=== PATIENT | female | born 1965 | race African-American/Black ===

== ENCOUNTER 2016-09-14 14:16 | Emergency (ER) | payer MEDICARE, MEDICAID ==
[2016-09-14] MEDS ORDERED: diphenhydrAMINE HCl 50 MG/ML 1 ML VIAL ONE ×2 (15:01→15:54)
[2016-09-14] MEDS ORDERED: Promethazine HCl 25 MG/ML VIAL ONE (15:01)
[2016-09-14] MEDS ORDERED: Acetaminophen 500 MG TAB ONE (15:01)
[2016-09-14] MEDS ORDERED: Ketorolac Tromethamine 30 MG/ML VIAL ONE (15:54)
[2016-09-14] MEDS ORDERED: methylPREDNISolone Sod Succ/PF 125 MG/2 ML VIAL ONE (15:54)
[2016-09-14] MEDS ORDERED: Sodium Chloride 0.9% 0 ML ONE (16:33)
[2016-09-14] MEDS ORDERED: Magnesium Sulfate 2 GM/100 ML BAG ONE (16:33)
--- NOTE | 2016-09-14 19:33 | ERRECORD ---
[facility] EMERGENCY RECORD HPI HEADACHE (14:44 MBRI) CHIEF COMPLAINT: Patient presents for evaluation of headache, Patient presents for evaluation of migraine headache, Pt with hx of migraine type headaches. HISTORIAN: History provided by patient, History provided by patient's family. LOCATION: Symptoms are generalized. QUALITY: Pain is dull in nature, described as aching, described as throbbing. SEVERITY: Maximum severity of symptoms severe, Currently symptoms are moderate. TIME COURSE: Gradual onset of symptoms, 3 days ago., There has been no change in the patient's symptoms over time. ASSOCIATED WITH FEMALE: No associated aura, No associated chills, No associated fever, No associated focal weakness, No posterior circulation symptoms present, No associated neck pain, No associated syncope, No associated trauma, No associated tingling, No associated numbness, No associated upper respiratory infection. EXACERBATED BY: Patient's condition exacerbated by nothing. RELIEVED BY: Patient's condition relieved by nothing, Patient's condition relieved by Pt tried her nml medications but this did not improve the symptoms. RISK FACTORS: No subarachnoid hemorrhage risk factors. ROS (14:44 MBRI) CONSTITUTIONAL: Negative constitutional review of systems, Historian denies chills, denies fever. EYES: Negative eye review of systems. ENT: Historian denies rhinorrhea, denies sore throat. CARDIOVASCULAR: Historian denies chest pain, denies dyspnea on exertion. RESPIRATORY: Historian denies cough, denies shortness of breath. GI: Negative gastrointestinal review of systems, Historian denies abdominal pain, denies diarrhea, denies nausea, denies vomiting. GENITOURINARY FEMALE: Historian denies dysuria, denies frequency, denies hematuria, denies urine output changes. MUSCULOSKELETAL: Historian denies injury, Denies any musculoskeletal pain. SKIN: Negative skin review of systems, Historian denies skin changes. NEUROLOGIC: Historian denies dizziness, denies focal weakness, reports headache, denies paresthesias, denies seizures, denies sensory changes. HEMO/LYMPHATIC: Historian denies abnormal blood clotting, denies easy bruising. PAST MEDICAL HISTORY (14:27 JSMI) MEDICAL HISTORY: Past medical history includes history of hypertension, which has been treated, Past medical history includes neurological disease, migraine headaches, NEUROPATHY IN LEGS. FEMALE SURGICAL HISTORY: Surgical history of &a-1R&a+25V*p+0X*l0246R*c202B*c15G*c2P*p-0X&a-25V&a+1R Name: Muna Grossman : 1965 F51 MedRec: [id number] AcctNum: [id number] Prepared: WedSep 15, 2016 09:28 by Interface Page 1 of 4 pMD [facility] EMERGENCY RECORD section, Date of surgery X2, Surgical history of gastric bypass, Surgical history of hysterectomy (PARTIAL). PSYCHIATRIC HISTORY: Psychiatric history includes, bipolar disorder. SOCIAL HISTORY: Patient drinks socially, rarely, Patient denies drug use, Patient has no smoking history. KNOWN ALLERGIES No Known Allergies (Unconfirmed) No Known Drug Allergies CURRENT MEDICATIONS Zofran ODT: TABLET,DISINTEGRATING : Strength - 8 mg : ORAL Patient Dose: 1 tab(s) Sublingual every 8 hours PRN. (14:23 JSMI) Abilify: TABLET : Strength - 2 mg : ORAL Patient Dose: 10 mg Oral once a day. (14:23 JSMI) amLODIPine: TABLET : Strength - 5 mg : ORAL Patient Dose: 5 mg Oral once a day. (14:23 JSMI) Cymbalta: CAPSULE,DELAYED RELEASE (ENTERIC COATED) : Strength - 60 mg : ORAL Patient Dose: 60 mg Oral once a day. (14:23 JSMI) Lyrica: CAPSULE : Strength - 25 mg : ORAL Patient Dose: 75 mg Oral 2 times a day. (14:23 JSMI) RisperDAL: TABLET : Strength - 0.25 mg : ORAL Patient Dose: unk. (14:24 JSMI) VITAL SIGNS VITAL SIGNS: BP: 133/90, Pulse: 87, Resp: 16, Temp: 98.1 (Oral), Pain: 8, O2 sat: 97 on Room Air, Time: 09/14/2016 14:25. (14:25 JSMI) BP: 140/91, Pulse: 72, Resp: 16, Pain: 5, O2 sat: 98 on Room Air, Time: 09/14/2016 16:19. (16:19 JSMI) BP: 131/85, Pulse: 71, Resp: 16, Pain: 5, O2 sat: 97 on Room Air, Time: 09/14/2016 17:05. (17:05 KMOR) BP: 147/95, Pulse: 79, Resp: 14, O2 sat: 97 on RA, Time: 09/14/2016 17:20. (17:20 JSMI) BP: 159/95, Pulse: 74, Resp: 16, Pain: 5, O2 sat: 98 on Room Air, Time: 09/14/2016 18:29. (18:29 JSMI) BP: 155/79, Pulse: 75, Resp: 16, Temp: 97.7 (Oral), Pain: 5, O2 sat: 99 on Room Air, Time: 09/14/2016 19:15. (19:15 KMOR) PHYSICAL EXAM (14:44 MBRI) CONSTITUTIONAL: Vital Signs Reviewed, Nursing notes reviewed. HEAD: Head exam included findings of head atraumatic, normocephalic. &a-1R&a+25V*p+0X*w2104D*c202B*c15G*c2P*p-0X&a-25V&a+1R Name: Muna Grossman : 1965 F51 MedRec: [id number] AcctNum: [id number] Prepared: WedSep 15, 2016 09:28 by Interface Page 2 of 4 pMD [facility] EMERGENCY RECORD EYES: Eye exam included findings of eyelids normal to inspection, Pupils equally round and reactive to light, Extraocular muscles intact. ENT: Ear exam normal, external ear normal, tympanic membranes normal, Pharynx exam normal. NECK: Neck exam normal, no cervical adenopathy, no tenderness. RESPIRATORY CHEST: Respiratory exam included findings of no respiratory distress, Breath sounds clear, No wheezing, No rales, No rhonchi. CARDIOVASCULAR: Cardiovascular exam included findings of heart rate regular rate and rhythm, Heart sounds normal, Carotids normal. ABDOMEN FEMALE: Abdominal exam included findings of abdomen nontender, Bowel sounds normal, no peritoneal signs, no rigidity, no guarding, no rebound. BACK: Back exam included findings of normal inspection, no tenderness. UPPER EXTREMITY: Upper extremity exam included findings of inspection normal, Radial pulse normal, no cyanosis, no clubbing, no edema. LOWER EXTREMITY: Lower extremity exam included findings of inspection normal, femoral pulses normal, no cyanosis, no clubbing, no edema, no tenderness noted. NEURO: Neuro exam findings include patient oriented to person, place and time, Speech normal, Gait normal, Memory normal, Cranial nerves intact, Deep tendon reflexes normal, no focal motor deficits, no focal sensory deficits, no cerebellar deficits. SKIN: Skin exam included findings of skin warm, dry, and normal in color. MEDICATION ADMINISTRATION SUMMARY Drug Name: valproate sodium, Dose Ordered: 15 mg/kg mg, Route: IV Piggy Back, Status: Given, Time: 18:09 09/14/2016, Drug Name: magnesium sulfate injection, Dose Ordered: 2 g, Route: IV Piggy Back, Status: Given, Time: 16:45 09/14/2016, Drug Name: *sodium chloride 0.9 % intravenous, Dose Ordered: 250 mL/hr, Route: IV Fluid Infusion, Status: Given, Time: 16:19 09/14/2016, Drug Name: methylPREDNISolone sodium succ injection, Dose Ordered: 125 mg, Route: IV Push, Status: Given, Time: 16:00 09/14/2016, Drug Name: diphenhydrAMINE injection, Dose Ordered: 25 mg, Route: IV Push, Status: Given, Time: 15:57 09/14/2016, Drug Name: ketorolac injection, Dose Ordered: 30 mg, Route: IV Push, Status: Given, Time: 15:55 09/14/2016, Drug Name: Phenergan injection, Dose Ordered: 12.5 mg, Route: IV Push, Status: Given, Time: 15:08 09/14/2016, Drug Name: diphenhydrAMINE injection, Dose Ordered: 25 mg, Route: IV Push, Status: Given, Time: 15:06 09/14/2016, Drug Name: Tylenol Extra Strength, Dose Ordered: 1000 mg, Route: Oral, Status: Given, Time: 15:05 09/14/2016, Drug Name: sodium chloride 0.9 % intravenous, Dose Ordered: 1 L, &a-1R&a+25V*p+0X*[id number]*c202B*c15G*c2P*p-0X&a-25V&a+1R Name: Chauncey Muna L : 1965 F51 MedRec: [id number] AcctNum: [id number] Prepared: WedSep 15, 2016 09:28 by Interface Page 3 of 4 pMD [facility] EMERGENCY RECORD Route: IV Fluid Infusion, Status: Given, Time: 14:55 09/14/2016, *Additional information available in notes, Detailed record available in Medication Service section. PROBLEM LIST No recorded problems DIAGNOSIS (18:28 MBRI) FINAL: PRIMARY: Migraine (unspecified). PRESCRIPTION No recorded prescriptions DISPOSITION PATIENT: Disposition Type: Discharge, Disposition: *Discharge Home, Condition: Fair. (19:18 MBRI) Patient left the department. (19:25 JSMI) Rodrigez: SHANNON=KATHARINA Wang, Melissa KMOR=KATHARINA Cardoza, Johnna MBRI=DO Hendrickson Matthew &a-1R&a+25V*p+0X*a6919P*c202B*c15G*c2P*p-0X&a-25V&a+1R Name: Muna Grossman : 1965 F51 MedRec: [id number] AcctNum: [id number] Prepared: [place] Sep 15, 2016 09:28 by Interface Page 4 of 4 pMD MTDD
--- NOTE | 2016-09-14 19:40 | PICIS ---
[facility] EMERGENCY RECORD TRIAGE (WedSep 14, 2016 14:22 JSMI) PATIENT: NAME: Muna Grossman, AGE: 51, GENDER: female, : Wed1965, TIME OF GREET: WedSep 14, 2016 14:17, PREFERRED LANGUAGE: Thai, ETHNICITY: Not or , ECODE BILLING MAP: [facility], SSN: [id number], Zip Code: [address], KG WEIGHT: 122.47, PHONE: , , , PERSON ID: [id number], PAYMENT: [place] [employer], PCP: DO ALONZO JOHN SCOTT. (WedSep 14, 2016 14:22 JSMI) COMPLAINT: migraine. (WedSep 14, 2016 14:22 JSMI) ADMISSION: URGENCY: 3 Urgent, ADMISSION SOURCE: Home, TRANSPORT: CAR, BED: TRIAGE. (WedSep 14, 2016 14:22 JSMI) ASSESSMENT: Assessment: PT PRESENTS AWAKE ALERT AND ORIENTED. SKIN PINK WARM AND DRY., Symptoms began 09/11/2016. (14:27 JSMI) IMMUNIZATIONS: Flu vaccine not up to date. (14:27 JSMI) SIRS SCORING: Heart Rate 55-109 (0), respiratory rate 12-24 (0), Mental Status altered: no (0), Infection or Suspected Infection: No. (14:27 JSMI) PROVIDERS: TRIAGE NURSE: Melissa Wang RN. (WedSep 14, 2016 14:22 JSMI) VITAL SIGNS: BP 133/90, Pulse 87, Resp 16, Temp 98.1, (Oral), Pain 8, O2 Sat 97, on Room Air, Time 09/14/2016 14:25. (14:25 JSMI) PREVIOUS VISIT ALLERGIES: No Known Drug Allergies. (WedSep 14, 2016 14:22 JSMI) No Known Drug Allergies. (14:27 JSMI) KNOWN ALLERGIES No Known Allergies (Unconfirmed) No Known Drug Allergies CURRENT MEDICATIONS Zofran ODT: TABLET,DISINTEGRATING : Strength - 8 mg : ORAL Patient Dose: 1 tab(s) Sublingual every 8 hours PRN. (14:23 JSMI) Abilify: TABLET : Strength - 2 mg : ORAL Patient Dose: 10 mg Oral once a day. (14:23 JSMI) amLODIPine: TABLET : Strength - 5 mg : ORAL Patient Dose: 5 mg Oral once a day. (14:23 JSMI) Cymbalta: CAPSULE,DELAYED RELEASE (ENTERIC COATED) : Strength - 60 mg : ORAL Patient Dose: 60 mg Oral once a day. (14:23 JSMI) Lyrica: CAPSULE : Strength - 25 mg : ORAL Patient Dose: 75 mg Oral 2 times a day. (14:23 JSMI) RisperDAL: TABLET : Strength - 0.25 mg : ORAL Patient Dose: unk. (14:24 JSMI) &a-1R&a+25V*p+0X*f0082E*c202B*c15G*c2P*p-0X&a-25V&a+1R Name: Muna Grossman : 1965 F51 MedRec: [id number] AcctNum: [id number] Prepared: Charlotte Sep 15, 2016 09:28 by Interface Page 1 of 10 pMD [facility] EMERGENCY RECORD VITAL SIGNS VITAL SIGNS: BP: 133/90, Pulse: 87, Resp: 16, Temp: 98.1 (Oral), Pain: 8, O2 sat: 97 on Room Air, Time: 09/14/2016 14:25. (14:25 JSMI) BP: 140/91, Pulse: 72, Resp: 16, Pain: 5, O2 sat: 98 on Room Air, Time: 09/14/2016 16:19. (16:19 JSMI) BP: 131/85, Pulse: 71, Resp: 16, Pain: 5, O2 sat: 97 on Room Air, Time: 09/14/2016 17:05. (17:05 KMOR) BP: 147/95, Pulse: 79, Resp: 14, O2 sat: 97 on RA, Time: 09/14/2016 17:20. (17:20 JSMI) BP: 159/95, Pulse: 74, Resp: 16, Pain: 5, O2 sat: 98 on Room Air, Time: 09/14/2016 18:29. (18:29 JSMI) BP: 155/79, Pulse: 75, Resp: 16, Temp: 97.7 (Oral), Pain: 5, O2 sat: 99 on Room Air, Time: 09/14/2016 19:15. (19:15 KMOR) NURSING ASSESSMENT: NEURO (14:27 JSMI) GCS: (6) Obeying command:, (5) Orientated:, (4) Spontaneous eye opening., Result: 15. CONSTITUTIONAL: Complex assessment performed, Patient arrives ambulatory, Gait steady, History obtained from patient, Patient appears comfortable, Patient cooperative, Patient alert, Oriented to person, place and time, Skin warm, Skin dry, Skin normal in color, Mucous membranes pink, Mucous membranes moist, Patient is well-groomed, Patient complains of migraine. PAIN: throbbing pain, to the frontal region, to the posterior region, on a scale 0-10 patient rates pain as 8. NEURO: Pupils equally round and reactive to light, Left pupil 3 mm in size, Right pupil 3 mm in size. NURSING PROCEDURE: DISCHARGE NOTE (19:23 JSMI) DISCHARGE: Patient discharged to home, ambulating without assistance, family driving, accompanied by other family member, Summary of Care printed/ provided, Patient requested and was provided an electronic copy of Discharge Instructions, Transition record given to patient, Discharge instructions given to patient, Simple or moderate discharge teaching performed, Prescriptions given and instructions on side effects given, Medication reconciliation form given, Above person(s) verbalized understanding of discharge instructions and follow-up care, Patient treated and evaluated by physician. BELONGINGS: cellular phone. NURSING PROCEDURE: IV (19:18 JSMI) FOLLOW-UP SITE 1: IV discontinued, due to patient being discharged, catheter intact. NURSING PROCEDURE: NURSE NOTES NURSES NOTES: Notes: Patient texting on phone, reports still having a headache. (17:04 KMOR) &a-1R&a+25V*p+0X*e8713G*c202B*c15G*c2P*p-0X&a-25V&a+1R Name: Muna Grossman : 1965 F51 MedRec: [id number] AcctNum: [id number] Prepared: WedSep 15, 2016 09:28 by Interface Page 2 of 10 pMD [facility] EMERGENCY RECORD Notes: PTS FRIEND STATES PT WANTS TO LEAVE. (17:20 JSMI) Notes: Dr. Hendrickson spoke with about waiting for medication, patient agreed to wait. NAD at this time. (17:46 KMOR) Patient assisted to bathroom with steady gait. (17:30 JSMI) Shift change report given, to KATHARINA Loera, Provided opportunity to answer questions, Line reconciliation completed. (19:04 JSMI) VITAL SIGNS: BP: 147, / 95, Pulse: 79, Resp: 14, O2 sat: 97, on: RA. (17:20 JSMI) ORDER DETAILS Order Name: ERRT Oxygen Usage ER, Status: Active, Time: 14:36 09/14/2016, User: SAMANTHA, - Ordered for: DO Hendrickson Matthew, - Entered by: DO Hendrickson Matthew - [facility] Sep 14, 2016 14:36, - Quantity: 1, Order Name: SALINE LOCK, Status: Done, Time: 15:11 09/14/2016, User: SHANNON, - Ordered for: DO Hendrickson Matthew, - Entered by: DO Hendrickson Matthew - [facility] Sep 14, 2016 14:36, - Quantity: 1. MEDICATION ADMINISTRATION SUMMARY Drug Name: valproate sodium, Dose Ordered: 15 mg/kg mg, Route: IV Piggy Back, Status: Given, Time: 18:09 09/14/2016, Drug Name: magnesium sulfate injection, Dose Ordered: 2 g, Route: IV Piggy Back, Status: Given, Time: 16:45 09/14/2016, Drug Name: *sodium chloride 0.9 % intravenous, Dose Ordered: 250 mL/hr, Route: IV Fluid Infusion, Status: Given, Time: 16:19 09/14/2016, Drug Name: methylPREDNISolone sodium succ injection, Dose Ordered: 125 mg, Route: IV Push, Status: Given, Time: 16:00 09/14/2016, Drug Name: diphenhydrAMINE injection, Dose Ordered: 25 mg, Route: IV Push, Status: Given, Time: 15:57 09/14/2016, Drug Name: ketorolac injection, Dose Ordered: 30 mg, Route: IV Push, Status: Given, Time: 15:55 09/14/2016, Drug Name: Phenergan injection, Dose Ordered: 12.5 mg, Route: IV Push, Status: Given, Time: 15:08 09/14/2016, Drug Name: diphenhydrAMINE injection, Dose Ordered: 25 mg, Route: IV Push, Status: Given, Time: 15:06 09/14/2016, Drug Name: Tylenol Extra Strength, Dose Ordered: 1000 mg, Route: Oral, Status: Given, Time: 15:05 09/14/2016, Drug Name: sodium chloride 0.9 % intravenous, Dose Ordered: 1 L, Route: IV Fluid Infusion, Status: Given, Time: 14:55 09/14/2016, *Additional information available in notes, Detailed record available in Medication Service section. MEDICATION SERVICE diphenhydrAMINE injection: Order: diphenhydrAMINE injection (diphenhydramine HCl) - Dose: 25 mg : IV Push &a-1R&a+25V*p+0X*u7598I*c202B*c15G*c2P*p-0X&a-25V&a+1R Name: Muna Grossman : 1965 F51 MedRec: [id number] AcctNum: [id number] Prepared: WedSep 15, 2016 09:28 by Interface Page 3 of 10 pMD [facility] EMERGENCY RECORD Ordered by: Jonny Hendrickson DO Entered by: Jonny Hendrickson DO WedSep 14, 2016 14:36 , Acknowledged by: Melissa Wang RN WedSep 14, 2016 15:01 Documented as given by: Melissa Wang RN WedSep 14, 2016 15:06 Patient, Medication, Dose, Route and Time verified prior to administration. IV SITE #1 IVP, initial medication, Slowly, Catheter placement confirmed via flush prior to administration, IV site without signs or symptoms of infiltration during medication administration, No swelling during administration, No drainage during administration, IV flushed after administration, Correct patient, time, route, dose and medication confirmed prior to administration, Patient advised of actions and side-effects prior to administration, Allergies confirmed and medications reviewed prior to administration, Patient in position of comfort, Side rails up, Cart in lowest position. diphenhydrAMINE injection: Order: diphenhydrAMINE injection (diphenhydramine HCl) - Dose: 25 mg : IV Push Ordered by: Jonny Hendrickson DO Entered by: Jonny Hendrickson DO WedSep 14, 2016 15:38 , Acknowledged by: Melissa Wang RN WedSep 14, 2016 15:52 Documented as given by: Melissa Wang RN WedSep 14, 2016 15:57 Patient, Medication, Dose, Route and Time verified prior to administration. IV SITE #1 IVP, subsequent different medication, Slowly, Catheter placement confirmed via flush prior to administration, IV site without signs or symptoms of infiltration during medication administration, No swelling during administration, No drainage during administration, IV flushed after administration, Correct patient, time, route, dose and medication confirmed prior to administration, Patient advised of actions and side-effects prior to administration, Allergies confirmed and medications reviewed prior to administration, Patient in position of comfort, Side rails up, Cart in lowest position. ketorolac injection: Order: ketorolac injection (ketorolac tromethamine) - Dose: 30 mg : IV Push Ordered by: Jonny Hendrickson DO Entered by: Jonny Hendrickson DO WedSep 14, 2016 15:38 , Acknowledged by: Melissa Wang RN WedSep 14, 2016 15:52 Documented as given by: Melissa Wang RN WedSep 14, 2016 15:55 Patient, Medication, Dose, Route and Time verified prior to administration. IV SITE #1 IVP, subsequent different medication, Slowly, Catheter placement confirmed via flush prior to administration, IV site without signs or symptoms of infiltration during medication administration, No swelling during administration, No drainage during administration, IV flushed after administration, Correct patient, time, route, dose and medication confirmed prior to administration, Patient advised of actions and side-effects prior to administration, Allergies confirmed and medications reviewed prior to administration, Patient in position of comfort, Side rails up, Cart in lowest &a-1R&a+25V*p+0X*l4037P*c202B*c15G*c2P*p-0X&a-25V&a+1R Name: Muna Grossman Delbert : 1965 F51 MedRec: [id number] AcctNum: [id number] Prepared: WedSep 15, 2016 09:28 by Interface Page 4 of 10 pMD [facility] EMERGENCY RECORD position. magnesium sulfate injection: Order: magnesium sulfate injection (magnesium sulfate) - Dose: 2 g : IV Piggy Back Schedule: Now Ordered by: Jonny Hendrickson DO Entered by: Jonny Hendrickson DO WedSep 14, 2016 16:31 , Acknowledged by: Melissa Wang RN WedSep 14, 2016 16:32 Documented as given by: Melissa Wang RN WedSep 14, 2016 16:45 Patient, Medication, Dose, Route and Time verified prior to administration. IV SITE #1 IVPB or drip, subsequent infusion, Premixed, Catheter placement confirmed via flush prior to administration, IV site without signs or symptoms of infiltration during medication administration, No swelling during administration, No drainage during administration, IV flushed after administration, Correct patient, time, route, dose and medication confirmed prior to administration, Patient advised of actions and side-effects prior to administration, Allergies confirmed and medications reviewed prior to administration, Patient in position of comfort, Side rails up, Cart in lowest position. : Follow Up : Response assessment performed, No signs or symptoms of allergic reaction noted, _IV SITE #1:_, Medication infusion discontinued, on WedSep 14, 2016 17:04, 20 minutes, ., Total amount infused: 50ml. (17:04 KMOR) methylPREDNISolone sodium succ injection: Order: methylPREDNISolone sodium succ injection (methylprednisolone sod succ) - Dose: 125 mg : IV Push Ordered by: Jonny Hendrickson DO Entered by: Jonny Hendrickson DO WedSep 14, 2016 15:38 , Acknowledged by: Melissa Wang RN WedSep 14, 2016 15:52 Documented as given by: Melissa Wang RN WedSep 14, 2016 16:00 Patient, Medication, Dose, Route and Time verified prior to administration. IV SITE #1 IVP, subsequent different medication, Slowly, Catheter placement confirmed via flush prior to administration, IV site without signs or symptoms of infiltration during medication administration, No swelling during administration, No drainage during administration, IV flushed after administration, Correct patient, time, route, dose and medication confirmed prior to administration, Patient advised of actions and side-effects prior to administration, Allergies confirmed and medications reviewed prior to administration, Patient in position of comfort, Side rails up, Cart in lowest position. Phenergan injection: Order: Phenergan injection (promethazine HCl) - Dose: 12.5 mg : IV Push Schedule: Now Ordered by: Jonny Hendrickson DO Entered by: Jonny Hendrickson DO WedSep 14, 2016 14:37 , Acknowledged by: Melissa Wang RN WedSep 14, 2016 15:01 Documented as given by: Melissa Wang RN WedSep 14, 2016 15:08 &a-1R&a+25V*p+0X*p0778S*c202B*c15G*c2P*p-0X&a-25V&a+1R Name: Muna Grossman : 1965 F51 MedRec: [id number] AcctNum: [id number] Prepared: WedSep 15, 2016 09:28 by Interface Page 5 of 10 pMD [facility] EMERGENCY RECORD Patient, Medication, Dose, Route and Time verified prior to administration. IV SITE #1 IVPB or drip, initial infusion, IVPB mixed in: 100ml, Fluid: 0.9NS, via gravity tubing, Catheter placement confirmed via flush prior to administration, IV site without signs or symptoms of infiltration during medication administration, No swelling during administration, No drainage during administration, IV flushed after administration, Correct patient, time, route, dose and medication confirmed prior to administration, Patient advised of actions and side-effects prior to administration, Allergies confirmed and medications reviewed prior to administration, Patient in position of comfort, Side rails up, Cart in lowest position, Pt states she has someone to drive her home. : Follow Up : _IV SITE #1:_, Medication infusion discontinued, on WedSep 14, 2016 15:30, 25 minutes, . (15:30 [facility]) sodium chloride 0.9 % intravenous: Order: sodium chloride 0.9 % intravenous (0.9 % sodium chloride) - Dose: 1 L : IV Fluid Infusion Ordered by: Jonny Hendrickson DO Entered by: Jonny Hendrickson DO WedSep 14, 2016 14:36 Documented as given by: Melissa Wang RN WedSep 14, 2016 14:55 Patient, Medication, Dose, Route and Time verified prior to administration. IV SITE #1 IV fluids established for hydration, IV SITE #1 1st bag hung, amount 1 Liter hung, IV SITE #1 bolus of 1000 ml established, IV SITE #1 Rate of bolus, wide open, via gravity tubing, Catheter placement confirmed via flush prior to administration, IV site without signs or symptoms of infiltration during medication administration, No swelling during administration, No drainage during administration, IV flushed after administration, Correct patient, time, route, dose and medication confirmed prior to administration, Patient advised of actions and side-effects prior to administration, Allergies confirmed and medications reviewed prior to administration, Patient in position of comfort, Side rails up, Cart in lowest position. : Follow Up : _IV SITE #1:_, IV fluid infusion discontinued, on WedSep 14, 2016 16:00, Total fluid hydration time IV site 1 1 hour, 5 minutes, ., Total amount infused: 1000. (16:00 [facility]) sodium chloride 0.9 % intravenous: Order: sodium chloride 0.9 % intravenous (0.9 % sodium chloride) - Dose: 250 mL/hr : IV Fluid Infusion Schedule: Now Notes: x 1 L Ordered by: Jonny Hendrickson DO Entered by: Jonny Hendrickson DO WedSep 14, 2016 15:38 , Acknowledged by: Melissa Wang RN WedSep 14, 2016 15:52 Documented as given by: Melissa Wang RN WedSep 14, 2016 16:19 Patient, Medication, Dose, Route and Time verified prior to administration. IV SITE #1 IV fluids established for hydration, IV SITE #1 2nd bag &a-1R&a+25V*p+0X*g9046E*c202B*c15G*c2P*p-0X&a-25V&a+1R Name: Muna Grossman : 1965 F51 MedRec: [id number] AcctNum: [id number] Prepared: WedSep 15, 2016 09:28 by Interface Page 6 of 10 pMD [facility] EMERGENCY RECORD hung, amount 1 Liter hung, IV SITE #1 bolus of 1000 ml established, IV SITE #1 Rate of bolus, wide open, via gravity tubing, Catheter placement confirmed via flush prior to administration, IV site without signs or symptoms of infiltration during medication administration, No swelling during administration, No drainage during administration, IV flushed after administration, Correct patient, time, route, dose and medication confirmed prior to administration, Patient advised of actions and side-effects prior to administration, Allergies confirmed and medications reviewed prior to administration, Patient in position of comfort, Side rails up, Cart in lowest position. : Follow Up : _IV SITE #1:_, IV fluid infusion discontinued, on WedSep 14, 2016 17:30, Total fluid hydration time IV site 1 1 hour, 15 minutes, ., Total amount infused: 1000. (17:30 [facility]) Tylenol Extra Strength: Order: Tylenol Extra Strength (acetaminophen) - Dose: 1000 mg : Oral Ordered by: Jonny Hendrickson DO Entered by: Jonny Hendrickson DO WedSep 14, 2016 14:36 , Acknowledged by: Melissa Wang RN WedSep 14, 2016 15:01 Documented as given by: Melissa Wang RN WedSep 14, 2016 15:05 Patient, Medication, Dose, Route and Time verified prior to administration. Correct patient, time, route, dose and medication confirmed prior to administration, Patient advised of actions and side-effects prior to administration, Allergies confirmed and medications reviewed prior to administration, Patient in position of comfort, Side rails up, Cart in lowest position, Family at bedside. valproate sodium: Order: valproate sodium - Dose: 15 mg/kg mg : IV Piggy Back Schedule: Now Ordered by: Jonny Hendrickson DO Entered by: Jonny Hendrickson DO WedSep 14, 2016 17:21 , Acknowledged by: Melissa Wang RN WedSep 14, 2016 17:23 Documented as given by: Melissa Wang RN WedSep 14, 2016 18:09 Patient, Medication, Dose, Route and Time verified prior to administration. IV SITE #1 IVPB or drip, subsequent infusion, IVPB mixed in: 100ml, Fluid: 0.9NS, via primary tubing, via pump tubing, Catheter placement confirmed via flush prior to administration, IV site without signs or symptoms of infiltration during medication administration, No swelling during administration, No drainage during administration, IV flushed after administration, Correct patient, time, route, dose and medication confirmed prior to administration, Patient advised of actions and side-effects prior to administration, Allergies confirmed and medications reviewed prior to administration, Patient in position of comfort, Side rails up, Cart in lowest position. : Follow Up : Response assessment performed, No signs or symptoms of allergic reaction noted, _IV SITE #1:_, Medication infusion discontinued, on WedSep 14, 2016 19:15, Total infusion time IV site 1 1 hour, 10 minutes, ., Total amount infused: &a-1R&a+25V*p+0X*q9992P*c202B*c15G*c2P*p-0X&a-25V&a+1R Name: Muna Grossman : 1965 F51 MedRec: [id number] AcctNum: [id number] Prepared: WedSep 15, 2016 09:28 by Interface Page 7 of 10 pMD [facility] EMERGENCY RECORD 100ml. (19:14 KMOR) HPI HEADACHE (14:44 MBRI) CHIEF COMPLAINT: Patient presents for evaluation of headache, Patient presents for evaluation of migraine headache, Pt with hx of migraine type headaches. HISTORIAN: History provided by patient, History provided by patient's family. LOCATION: Symptoms are generalized. QUALITY: Pain is dull in nature, described as aching, described as throbbing. SEVERITY: Maximum severity of symptoms severe, Currently symptoms are moderate. TIME COURSE: Gradual onset of symptoms, 3 days ago., There has been no change in the patient's symptoms over time. ASSOCIATED WITH FEMALE: No associated aura, No associated chills, No associated fever, No associated focal weakness, No posterior circulation symptoms present, No associated neck pain, No associated syncope, No associated trauma, No associated tingling, No associated numbness, No associated upper respiratory infection. EXACERBATED BY: Patient's condition exacerbated by nothing. RELIEVED BY: Patient's condition relieved by nothing, Patient's condition relieved by Pt tried her nml medications but this did not improve the symptoms. RISK FACTORS: No subarachnoid hemorrhage risk factors. ROS (14:44 MBRI) CONSTITUTIONAL: Negative constitutional review of systems, Historian denies chills, denies fever. EYES: Negative eye review of systems. ENT: Historian denies rhinorrhea, denies sore throat. CARDIOVASCULAR: Historian denies chest pain, denies dyspnea on exertion. RESPIRATORY: Historian denies cough, denies shortness of breath. GI: Negative gastrointestinal review of systems, Historian denies abdominal pain, denies diarrhea, denies nausea, denies vomiting. GENITOURINARY FEMALE: Historian denies dysuria, denies frequency, denies hematuria, denies urine output changes. MUSCULOSKELETAL: Historian denies injury, Denies any musculoskeletal pain. SKIN: Negative skin review of systems, Historian denies skin changes. NEUROLOGIC: Historian denies dizziness, denies focal weakness, reports headache, denies paresthesias, denies seizures, denies sensory changes. HEMO/LYMPHATIC: Historian denies abnormal blood clotting, denies easy bruising. PAST MEDICAL HISTORY (14:27 MI) MEDICAL HISTORY: Past medical history includes history of hypertension, which has been treated, Past medical history includes &a-1R&a+25V*p+0X*r1649U*c202B*c15G*c2P*p-0X&a-25V&a+1R Name: Muna Grossman : 1965 F51 MedRec: [id number] AcctNum: [id number] Prepared: WedSep 15, 2016 09:28 by Interface Page 8 of 10 pMD [facility] EMERGENCY RECORD neurological disease, migraine headaches, NEUROPATHY IN LEGS. FEMALE SURGICAL HISTORY: Surgical history of section, Date of surgery X2, Surgical history of gastric bypass, Surgical history of hysterectomy (PARTIAL). PSYCHIATRIC HISTORY: Psychiatric history includes, bipolar disorder. SOCIAL HISTORY: Patient drinks socially, rarely, Patient denies drug use, Patient has no smoking history. PHYSICAL EXAM (14:44 MBRI) CONSTITUTIONAL: Vital Signs Reviewed, Nursing notes reviewed. HEAD: Head exam included findings of head atraumatic, normocephalic. EYES: Eye exam included findings of eyelids normal to inspection, Pupils equally round and reactive to light, Extraocular muscles intact. ENT: Ear exam normal, external ear normal, tympanic membranes normal, Pharynx exam normal. NECK: Neck exam normal, no cervical adenopathy, no tenderness. RESPIRATORY CHEST: Respiratory exam included findings of no respiratory distress, Breath sounds clear, No wheezing, No rales, No rhonchi. CARDIOVASCULAR: Cardiovascular exam included findings of heart rate regular rate and rhythm, Heart sounds normal, Carotids normal. ABDOMEN FEMALE: Abdominal exam included findings of abdomen nontender, Bowel sounds normal, no peritoneal signs, no rigidity, no guarding, no rebound. BACK: Back exam included findings of normal inspection, no tenderness. UPPER EXTREMITY: Upper extremity exam included findings of inspection normal, Radial pulse normal, no cyanosis, no clubbing, no edema. LOWER EXTREMITY: Lower extremity exam included findings of inspection normal, femoral pulses normal, no cyanosis, no clubbing, no edema, no tenderness noted. NEURO: Neuro exam findings include patient oriented to person, place and time, Speech normal, Gait normal, Memory normal, Cranial nerves intact, Deep tendon reflexes normal, no focal motor deficits, no focal sensory deficits, no cerebellar deficits. SKIN: Skin exam included findings of skin warm, dry, and normal in color. EVENTS TRANSFER: Triage to Emergency Triage. (WedSep 14, 2016 14:22 JSMI) Emergency Triage to Emergency Room -03. (14:28 KMOR) Removed from Emergency Emergency Room -03. (19:25 JSMI) PROBLEM LIST No recorded problems &a-1R&a+25V*p+0X*[id number]*c202B*c15G*c2P*p-0X&a-25V&a+1R Name: Muna Grossman : 1965 F51 MedRec: [id number] AcctNum: [id number] Prepared: WedSep 15, 2016 09:28 by Interface Page 9 of 10 pMD [facility] EMERGENCY RECORD DIAGNOSIS (18:28 MBRI) FINAL: PRIMARY: Migraine (unspecified). DISPOSITION PATIENT: Disposition Type: Discharge, Disposition: *Discharge Home, Condition: Fair. (19:18 MBRI) Patient left the department. (19:25 JSMI) INSTRUCTION (19:19 MBRI) DISCHARGE: MIGRAINE HEADACHE. FOLLOWUP: DO ALONZO JOHN SCOTT, [facility], [address] [place] [address], , Follow up with Primary Care Physician as soon as possible. SPECIAL: Please return for any further issues or concerns, we would be happy to see you. We hope you feel better soon. Follow-up with your PCP Tylenol or Advil for Pain. PRESCRIPTION No recorded prescriptions IMAGING (19:25 JSMI) *SUPPLY CHARGE SHEET: Image captured from scanner. *DISCHARGE INSTRUCTIONS RECEIPT: Image captured from scanner. ADMIN DIGITAL SIGNATURE: KATHARINA Cardoza Krista. (WedSep 15, 2016 07:12 KMOR) DO Hendrickson Matthew. (WedSep 15, 2016 09:21 MBRI) Rodrigez: JSMI=KATHARINA Wang Julie KMOR=KATHARINA Cardoza Krista MBRI=DO Hendrickson Matthew &a-1R&a+25V*p+0X*[id number]*c202B*c15G*c2P*p-0X&a-25V&a+1R Name: Muna Grossman : 1965 F51 MedRec: [id number] AcctNum: [id number] Prepared: WedSep 15, 2016 09:28 by Interface Page 10 of 10 pMD [facility] MEDICATION RECONCILIATION You were seen in the Emergency Department on: WedSep 14, 2016 KNOWN ALLERGIES No Known Allergies (Unconfirmed) No Known Drug Allergies MEDICATIONS GIVEN WHILE IN THE EMERGENCY DEPARTMENT diphenhydrAMINE injection (diphenhydramine HCl) - Dose: 25 milligram(s) : IV Push Tylenol Extra Strength (acetaminophen) - Dose: 1000 milligram(s) : Oral sodium chloride 0.9 % intravenous (0.9 % sodium chloride) - Dose: 1 liter(s) : IV Fluid Infusion Phenergan injection (promethazine HCl) - Dose: 12.5 milligram(s) : IV Push sodium chloride 0.9 % intravenous (0.9 % sodium chloride) - Dose: 250 milliliters per hour : IV Fluid Infusion ketorolac injection (ketorolac tromethamine) - Dose: 30 milligram(s) : IV Push methylPREDNISolone sodium succ injection (methylprednisolone sod succ) - Dose: 125 milligram(s) : IV Push diphenhydrAMINE injection (diphenhydramine HCl) - Dose: 25 milligram(s) : IV Push magnesium sulfate injection (magnesium sulfate) - Dose: 2 gram(s) : IV Piggy Back valproate sodium - Dose: 15 mg/kg milligram(s) : IV Piggy Back HOME MEDICATIONS CONTINUE PRESCRIBED Abilify : TABLET : Strength - 2 mg : ORAL Continue as prescribed Patient had been takin mg Oral once a day. amLODIPine : TABLET : Strength - 5 mg : ORAL Continue as prescribed Patient had been takin mg Oral once a day. Cymbalta : CAPSULE,DELAYED RELEASE (ENTERIC COATED) : Strength - 60 mg : ORAL Continue as prescribed Patient had been takin mg Oral once a day. &a-1R&a+25V*p+0X*[id number]*c202B*c15G*c2P*p-0X&a-25V&a+1R Name: Muna Grossman : 1965 F51 MedRec: [id number] AcctNum: [id number] Prepared: WedSep 15, 2016 09:28 by Interface pMD [facility] MEDICATION RECONCILIATION Lyrica : CAPSULE : Strength - 25 mg : ORAL Continue as prescribed Patient had been takin mg Oral 2 times a day. RisperDAL : TABLET : Strength - 0.25 mg : ORAL Continue as prescribed Patient had been taking: unk. Zofran ODT : TABLET,DISINTEGRATING : Strength - 8 mg : ORAL Continue as prescribed Patient had been takin tab(s) Sublingual every 8 hours PRN. &a-1R&a+25V*p+0X*[id number]*c202B*c15G*c2P*p-0X&a-25V&a+1R Name: Muna Grossman : 1965 F51 MedRec: [id number] AcctNum: [id number] Prepared: WedSep 15, 2016 09:28 by Interface pMD [facility]
== END 2016-09-14 19:23 | disposition home or self-care (01) ==
LOC: BURERS 14:16
DX: G43.909 Migraine, unspecified, not intractable, without status migrainosus (principal); I10 Essential (primary) hypertension; F31.9 Bipolar disorder, unspecified; G62.9 Polyneuropathy, unspecified; Z79.899 Other long term (current) drug therapy
CPT/HCPCS: 96365; 96367; 96375; 96376; J1200; J1885; J2550; J2930; J3475; J7050

== ENCOUNTER 2017-02-03 15:43 | Emergency (ER) | payer MEDICARE, MEDICAID ==
[2017-02-03] MEDS ORDERED: Ketorolac Tromethamine 30 MG/ML VIAL ONE (16:05)
[2017-02-03] MEDS ORDERED: diphenhydrAMINE HCl 50 MG/ML 1 ML VIAL ONE (16:05)
[2017-02-03] MEDS ORDERED: Prochlorperazine 10 MG/2 ML VIAL ONE (16:05)
== END 2017-02-03 16:48 | disposition home or self-care (01) ==
LOC: BURERS 15:43
DX: G43.909 Migraine, unspecified, not intractable, without status migrainosus (principal); I10 Essential (primary) hypertension; G57.93 Unspecified mononeuropathy of bilateral lower limbs; F31.9 Bipolar disorder, unspecified
CPT/HCPCS: 96361; 96374; 96375; J0780; J1200; J1885

== ENCOUNTER 2017-11-19 10:44 | Emergency (ER) | payer MEDICARE, OTHER ==
[2017-11-19] MEDS ORDERED: diphenhydrAMINE 50 MG/ML VIAL ONE (11:18)
[2017-11-19] MEDS ORDERED: Ketorolac Tromethamine 30 MG/ML VIAL ONE (11:18)
[2017-11-19] MEDS ORDERED: Magnesium Sulfate 2 GM/100 ML BAG ONE (11:19)
[2017-11-19] MEDS ORDERED: Metoclopramide HCl 10 MG/2 ML VIAL ONE (11:19)
[2017-11-19] MEDS ORDERED: methylPREDNISolone Sod Succ/PF 125 MG/2 ML VIAL ONE (11:19)
== END 2017-11-19 12:37 | disposition home or self-care (01) ==
LOC: BURERS 10:44
DX: G43.909 Migraine, unspecified, not intractable, without status migrainosus (principal); I10 Essential (primary) hypertension; G57.93 Unspecified mononeuropathy of bilateral lower limbs; F31.9 Bipolar disorder, unspecified
CPT/HCPCS: 96365; 96368; 96375; J1200; J1885; J2765; J2930; J3475

== ENCOUNTER 2020-05-21 19:15 | Emergency (ER) | payer MEDICARE, OTHER ==
[2020-05-21] MEDS ORDERED: Ketorolac Tromethamine 60 MG/2 ML VIAL ONE (20:30)
[2020-05-21] MEDS ORDERED: diphenhydrAMINE 25 MG CAP ONE (20:30)
[2020-05-21] MEDS ORDERED: Prochlorperazine 10 MG/2 ML VIAL ONE (20:31)
== END 2020-05-21 21:00 | disposition home or self-care (01) ==
LOC: BURERS 19:15
DX: G43.909 Migraine, unspecified, not intractable, without status migrainosus (principal); I10 Essential (primary) hypertension; D64.9 Anemia, unspecified; G62.9 Polyneuropathy, unspecified; F31.9 Bipolar disorder, unspecified
CPT/HCPCS: 96372; 99283; J0780; J1885; Q0163